=== PATIENT | male | born 1955 | race Two or more races ===

== ENCOUNTER 2017-01-30 23:30 | Inpatient (IN) | payer MEDICARE, MEDICAID ==
[~2017-01-30] VITALS: Ht 175.3 cm; Wt 86.2 kg
[2017-01-30 23:47] VITALS: BP 130/71
[2017-01-31] VITALS (10 sets, daily range): BP systolic 130–144; BP diastolic 69–95
--- NOTE | 2017-01-31 00:14 | Emergency Room Report ---
History of Present Illness General Chief Complaint: Altered Level of Consciousness Source: EMS Present Illness HPI Patient is a 62-year-old male presented after increased altered consciousness. Patient had unclear onset of symptoms however, the patient was noted be somewhat altered approximately 7:00 in the morning by [facility] staff. The patient previous history of CVA with residual left-sided weakness. Patient was noted to have increased confusion. The patient is a stay at assisted living. Patient had been taking multiple medications. Allergies: Coded Allergies: No Known Allergies (Unverified , 01/30/17) Patient History Past Medical History: see triage record, CVA/TIA Reviewed Nursing Documentation: PMH: Agreed, PSxH: Agreed Nursing Documentation-PMH Hx Hypertension: Yes Hx Cerebrovascular Accident: Yes - LEFT SIDE HEMIPHARESIS, STROKE Review of Systems All Other Systems: limited - by mental status Physical Exam Vital Signs Date Time Temp Pulse Resp B/P Pulse Ox O2 Delivery O2 Flow Rate FiO2 01/30/17 23:30 98.8 56 18 142/86 98 Room Air Sp02 EP Interpretation: reviewed, normal General Appearance: normal inspection, well appearing, no apparent distress Head: atraumatic ENT: normal ENT inspection, hearing grossly normal, normal voice Neck: normal inspection, full range of motion, supple, no bony tend Respiratory: normal inspection, lungs clear, normal breath sounds, no respiratory distress, no retraction, no wheezing Cardiovascular #1: regular rate, rhythm, no edema Gastrointestinal: normal inspection, normal bowel sounds, non tender, soft, no guarding, no hernia Genitourinary: no CVA tenderness Musculoskeletal: back normal, other - left upper extremity weakness Neurologic: normal inspection, alert, responsive, speech normal, motor weakness - left upper extremity, other - left sided hemineglect Psychiatric: normal inspection, judgement/insight normal, mood/affect normal Skin: normal inspection, normal color, no rash Medical Decision Making Diagnostic Impression: Primary Impression: Altered level of consciousness Additional Impression: CVA (cerebral vascular accident) ER Course Patient presented for altered mental status. Differential diagnosis included but was not limited to ischemic stroke, subarachnoid hemorrhage, hypoglycemia, spinal cord injury, neurodegenerative disorder, urinary tract infection, hypoxemia.A CT of the head radiology showed a probable thrombosis in the MCA distribution. Patient onset was consistent with a CVA this morning. The patient appears to be outside of the window for thrombolytics. Patient was given aspirin. The patient be admitted for further evaluation monitoring. Dr. Rodolfo Box was contacted for inpatient management Labs Test 01/31/17 00:49 White Blood Count 8.4 K/UL (4.8-10.8) Red Blood Count 5.80 M/UL (4.70-6.10) Hemoglobin 16.7 G/DL (14.2-18.0) Hematocrit 50.9 % (42.0-52.0) Mean Corpuscular Volume 88 FL (80-99) Mean Corpuscular Hemoglobin 28.8 PG (27.0-31.0) Mean Corpuscular Hemoglobin Concent 32.8 G/DL (32.0-36.0) Red Cell Distribution Width 14.1 % (11.6-14.8) Platelet Count 142 K/UL (150-450) Mean Platelet Volume 7.1 FL (6.5-10.1) Neutrophils (%) (Auto) 68.2 % (45.0-75.0) Lymphocytes (%) (Auto) 21.0 % (20.0-45.0) Monocytes (%) (Auto) 9.4 % (1.0-10.0) Eosinophils (%) (Auto) 0.8 % (0.0-3.0) Basophils (%) (Auto) 0.8 % (0.0-2.0) EKG Diagnostic Results Rate: bradycardiac Rhythm: NSR - 53 ST Segments: no acute changes Rhythm Strip Diag. Results EP Interpretation: yes Rhythm: NSR - 53, no PVC's, no ectopy Chest X-Ray Diagnostic Results EP Interpretation: Yes Findings: no consolidation, no effusion, no pneumothorax, no acute cardiopulmonary disease Number of Views: 1 Last Vital Signs Date Time Temp Pulse Resp B/P Pulse Ox O2 Delivery O2 Flow Rate FiO2 01/30/17 23:30 98.8 56 18 142/86 98 Room Air Status: unchanged Disposition: ADMITTED INPATIENT Condition: Stoney Mojica Jan 31, 2017 00:14
[2017-01-31 01:04] LABS: BASOPHILS % (AUTO) 0.8 % (0.0-2.0); EOSINOPHILS % (AUTO) 0.8 % (0.0-3.0); MEAN CORPUSCULAR HEMOGLOBIN 28.8 PG (27.0-31.0); MEAN CORPUSCULAR HGB CONC 32.8 G/DL (32.0-36.0); MEAN CORPUSCULAR VOLUME 88 FL (80-99); MEAN PLATELET VOLUME 7.1 FL (6.5-10.1); MONOCYTES % (AUTO) 9.4 % (1.0-10.0); NEUTROPHILS % (AUTO) 68.2 % (45.0-75.0); PLATELET COUNT 142 K/UL (150-450); RED CELL DISTRIBUTION WIDTH 14.1 % (11.6-14.8); WHITE BLOOD COUNT 8.4 K/UL (4.8-10.8)
[2017-01-31 01:14] LABS: INR 1.1 (0.9-1.1); PROTHROMBIN TIME 11.6 SEC (9.30-11.50)
[2017-01-31 01:18] LABS: ALANINE AMINOTRANSFERASE 14 U/L (3-41); ALBUMIN/GLOBULIN RATIO 1.4 (1.0-2.7); ANION GAP 12 (5-15); ASPARTATE AMINO TRANSFERASE 15 U/L (5-40); CALCIUM 8.8 mg/dL (8.6-10.2); CARBON DIOXIDE 26 mEQ/L (20-30); CHLORIDE 103 mEQ/L (98-107); CREATININE 1.1 mg/dL (0.7-1.2); GLOMERULAR FILTRATION RATE > 60 mL/min (>60); HEMOLYSIS 26; POTASSIUM 3.8 mEQ/L (3.4-4.9); SODIUM 141 mEQ/L (135-145); TOTAL PROTEIN 6.6 g/dL (6.6-8.7)
[2017-01-31 01:20] LABS: TROPONIN I < 0.30 ng/mL (<=0.30)
[2017-01-31 01:28] LABS: CKMB 1.8 ng/mL (< 6.7)
[2017-01-31 02:06] LABS: APPEARANCE,URINE CLEAR; KETONES,URINE NEGATIVE (NEGATIVE); LEUKOCYTE ESTERASE ,URINE NEGATIVE (NEGATIVE); NITRITE,URINE NEGATIVE (NEGATIVE); PH,URINE 7 (4.5-8.0); PROTEIN,URINE NEGATIVE (NEGATIVE); UROBILINOGEN,URINE 1 MG/DL (0.0-1.0)
[2017-01-31] MEDS ORDERED: AMLODIPINE BESY10 MG ORAL (02:13)
[2017-01-31] MEDS ORDERED: LIPITOR20 MG ORAL (02:14)
[2017-01-31] MEDS ORDERED: COLACE100 MG ORAL (02:14)
[2017-01-31] MEDS ORDERED: DETROL LA2 MG ORAL (02:15)
[2017-01-31] MEDS ORDERED: LISINOPRIL20 MG ORAL (02:15)
[2017-01-31] MEDS ORDERED: ZANTAC150 MG ORAL (02:16)
[2017-01-31] MEDS ORDERED: HYDRALAZINE HCL50 MG ORAL (02:17)
[2017-01-31] MEDS ORDERED: IBUPROFEN600 MG ORAL (02:17)
[2017-01-31] MEDS ORDERED: TYLENOL EXTRA500 MG ORAL (02:18)
[2017-01-31] MEDS ORDERED: ANTI-DIARRHEA2 MG PO (02:18)
[2017-01-31] MEDS ORDERED: MILK OF MA400 MG/51 ORAL (02:19)
[2017-01-31] MEDS ORDERED: NS w/KCl 20mEq 1,000 ML IV SCH (08:00)
--- NOTE | 2017-01-31 09:09 | Diagnostic Imaging Report ---
Indications: Altered mental status Technique: Continuous helical CT imaging of the brain was performed with automatic exposure control on a Siemens sensation [address] scanner. Axial and coronal images were reconstructed at 5 mm slice thickness and interval. CTDI volume(s): 70 mGy Total DLP: 1456 mGy-cm Findings: Comparison: None. Large wedge-shaped, peripherally based area of abnormal low attenuation involves contiguous portions of right temporal, frontal, and parietal lobes, insula and basal ganglia region. Both bagley and white matter are involved. Bagley-white differentiation decreased. Regional sulci effaced. Asymmetrically increased attenuation in M1 and M2 segments of right middle cerebral artery. Multiple small circumscribed foci of low attenuation/parenchymal loss in yamile, bilateral basal ganglia/radiata regions. Confluent low attenuation bilateral periventricular and deep white matter. Ventricles, cisterns, sulci are diffusely prominent.. No evidence of mass or hemorrhage, other attenuation abnormality, midline shift, hydrocephalus or increased intracranial pressure. Bone window images are unremarkable. Visualized paranasal sinuses and mastoid air cells are clear. IMPRESSION: Large acute infarct right middle cerebral artery territory with evidence of acute thrombosis of the latter. Mild local mass effect but no midline shift. Pontine and bilateral cerebral infarcts as described Extensive chronic microvascular ischemic changes bilateral cerebral white matter Atrophy. This correlates with [facility] preliminary report. The CT scanner at [facility] is accredited by the [employer] and the scans are performed using protocols designed to limit radiation exposure to as low as reasonably achievable to attain images of sufficient resolution adequate for diagnostic evaluation.
--- NOTE | 2017-01-31 09:13 | Diagnostic Imaging Report ---
Indications: Shortness of breath Technique: Portable AP chest Findings: Comparison: None Left hemithoracic base degraded by overlying extremity. Left lung pleura are otherwise clear. Elevation apparent hemidiaphragm with overlying right lung base linear densities. No obvious right pleural abnormalities. Cardiac silhouette appears mildly enlarged. Pulmonary vasculature within normal limits. Aortic arch mildly calcified. No abnormal mediastinal widening. IMPRESSION: Right lung volume loss with elevation apparent right hemidiaphragm, overlying subsegmental atelectasis versus scarring No other evidence of acute cardiopulmonary disease, limited as described Apparent cardiomegaly, may be to a degree artifactual enhanced by suboptimal inspiration
[2017-01-31] MEDS: Lisinopril 20mg tab ORAL SCH ×2 (09:58→18:27)
[2017-01-31 10:05] LABS: BASOPHILS % (AUTO) 0.6 % (0.0-2.0); EOSINOPHILS % (AUTO) 0.6 % (0.0-3.0); LYMPHOCYTES % (AUTO) 20.7 % (20.0-45.0); MEAN CORPUSCULAR HEMOGLOBIN 28.4 PG (27.0-31.0); MEAN CORPUSCULAR VOLUME 89 FL (80-99); MEAN PLATELET VOLUME 7.2 FL (6.5-10.1); MONOCYTES % (AUTO) 9.4 % (1.0-10.0); NEUTROPHILS % (AUTO) 68.6 % (45.0-75.0); PLATELET COUNT 161 K/UL (150-450); RED BLOOD COUNT 6.12 M/UL (4.70-6.10); RED CELL DISTRIBUTION WIDTH 14.2 % (11.6-14.8); WHITE BLOOD COUNT 8.5 K/UL (4.8-10.8)
[2017-01-31 10:27] LABS: AMMONIA 23 umol/L (16-60)
[2017-01-31 10:34] LABS: ALANINE AMINOTRANSFERASE 16 U/L (3-41); ALBUMIN/GLOBULIN RATIO 1.5 (1.0-2.7); ANION GAP 13 (5-15); ASPARTATE AMINO TRANSFERASE 15 U/L (5-40); CALCIUM 9.2 mg/dL (8.6-10.2); CARBON DIOXIDE 27 mEQ/L (20-30); CHLORIDE 102 mEQ/L (98-107); CHOLESTEROL 167 mg/dL (< 200); CHOLESTEROL/HDL RATIO 3.8 (3.3-4.4); CREATININE 1.1 mg/dL (0.7-1.2); GLOMERULAR FILTRATION RATE > 60 mL/min (>60); HEMOLYSIS 3; LDL CHOLESTEROL (CALC.) 101 mg/dL (60-99); POTASSIUM 3.9 mEQ/L (3.4-4.9); SODIUM 142 mEQ/L (135-145)
--- NOTE | 2017-01-31 21:28 | Consultation ---
Consult Note Consult Note NEUROLOGY CONSULTATION: Full note dictated #[id number] 62 y/o, RH, BM with PH of HTN and a stroke 3 years ago with left UE>LE paresis. On 01/30/17 was noted to have AMS and left visual problems and neglect. ON EXAM: Disorientation to date and place. Mild memory problems. Left VF cut with right gaze preference. Left VII central. Left UE plegia Left LE paresis. Left> right DTRs Extensor left plantar. CT of brain with acute right MCA infarct and old yamile and BG infarcts. IMPRESSION: Acute right MCA infarct and old yamile and BG infarcts. REC: Change antiplatelet to Plavix Keep BP <120/80 Keep LDL < 70 W/U for CVD with CVNIP and TTE with bubble. PT/OT/SLT Christel Hutton M.D., M.S.P.CHRISTEL GUTIERREZ Jan 31, 2017 21:28
--- NOTE | 2017-01-31 22:28 | History and Physical Report ---
DATE OF ADMISSION: 01/31/2017 CHIEF COMPLAINT: Altered mental status. HISTORY OF PRESENT ILLNESS: The patient is a 62-year-old male. He has a prior history of hypertensive heart disease and stroke with chronic left-sided weakness. He was brought in by family members because of altered mental status. According to the patient's family several days ago, his assisted-living notified him that he was poorly responsive. Family came and evaluated the patient. They noted that he seemed somewhat confused and "not at his baseline." They requested that he go to the emergency room, but the patient refused. The patient's condition continued and did not improve. After urging from family members, the patient eventually did agree to go the emergency room. On evaluation, there a CT scan showed a large acute infarct in the right middle cerebral artery. The patient is now admitted for further evaluation and care. PAST MEDICAL HISTORY: As above. PAST SURGICAL HISTORY: None. CURRENT MEDICATIONS: Reconciled and reviewed. ALLERGIES: None. FAMILY HISTORY: Significant for hypertension and diabetes, heart disease. SOCIAL HISTORY: Negative for tobacco, ethanol, or drugs. REVIEW OF SYSTEMS: The patient is unobtainable. PHYSICAL EXAMINATION: VITAL SIGNS: Temperature 98.9 degrees, blood pressure 132/70, pulse 58, respirations 20. GENERAL: The patient is a well-developed, in no apparent distress. He is arousable and does answer some simple questions. There is some questionable left-sided neglect. ASSESSMENT: 1. This is a pleasant male with a prior history of stroke with left-sided weakness admitted with altered mental status likely secondary to a second stroke causing altered mental status secondary to stroke. 2. Prior stroke. 3. History of hypertension. PLAN: Neuro consultation. Check an echo and a carotid duplex. PT and OT evaluation. Swallow evaluation will be obtained. Cardiology consultation also has been obtained. Kulwinder House M.D. DR: NENA JOB#: [id number] CC:
[2017-02-01] VITALS: BP 145/75
[2017-02-01 04:00] VITALS: BP 154/87
--- NOTE | 2017-02-01 06:58 | Consultation ---
DATE OF CONSULTATION: 01/31/2017 NEUROLOGY CONSULTATION REQUESTING PHYSICIAN: Rodolfo Box M.D. HISTORY: Mr. Barrett Alejandre is a 62-year-old, right-handed, black gentleman, who does have a past history of hypertension, dyslipidemia, and stroke approximately three years ago associated with left upper extremity greater than lower extremity paresis. Since then, he has lived in a [facility]. On 01/30/2017, he was noted to have alteration in his mental state, left visual problems, and left-sided neglect. The paramedics were called in, and he was brought into the [facility] Emergency Room. He was evaluated with a CT scan of the brain, which revealed an acute right middle cerebral artery territory infarct, and in addition, old infarcts in the yamile and basal ganglia. The patient has since been admitted for further evaluation and management. At this point in time, the patient continues to have significant left-sided neglect and is plegic in the upper extremity and paretic in the left lower extremity. He denies any other neurological symptoms. PAST MEDICAL HISTORY: Significant for hypertension, cerebrovascular disease with stroke three years ago associated with left upper extremity greater than lower extremity weakness. FAMILY HISTORY: Significant for high blood pressure in other family members. PERSONAL HISTORY: Home: He lives in an assisted living facility. 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 Habits: He used to smoke in the past, but stopped smoking 3 years ago when he had his first stroke. He consumes approximately 1 alcoholic drink in the week. He denies use of any illicit drugs. PRESENT MEDICATIONS: Include atorvastatin, ranitidine, lisinopril, and aspirin 325 mg. PHYSICAL EXAMINATION: GENERAL: He is a well-developed, well-nourished, pleasant black gentleman, lying in bed, in no acute distress, neglecting his left side with right gaze preference. VITAL SIGNS: Pulse 56 per minute, blood pressure 135/95 mmHg, respirations 20 per minute, and temperature 98.2 degrees Fahrenheit. HEAD: Normocephalic and atraumatic. EENT: Examination benign. NECK: No neck rigidity was observed. NEUROLOGICAL EXAMINATION: MENTAL STATUS EXAMINATION: He was awake and alert. He was oriented to self, hospital, and January 2017. He did not know the name of the hospital or the exact date. He was able to recall 3/3 words immediately and in 1 minute, but could only remember 2/3 words in 3 minutes. He was able to remember president Trump through Paul Kannan, but had problems remembering presidents prior to that. His mathematical skills were minimally impaired. His visuospatial function was relatively good. SPEECH: He had a mild dysarthria. LANGUAGE: He had a mild anomia for low-frequency words. CRANIAL NERVE EXAMINATION: II: He had a left visual field cut and a right gaze preference. III, IV & : The external ocular movements were restricted due to the significant right gaze preference. The pupils were 3 mm in diameter, equal, round, regular, and reactive sluggishly to light. V: He had normal facial sensations, and the temporales, masseters, and pterygoids functioned normally. VII: He had a left VII central facial paresis. VIII: He was able to hear well bilaterally and had no nystagmus. IX: The palate moved symmetrically on phonation. X: He had no hoarseness of voice. XI: The sternocleidomastoids and trapezii functioned normally. XII: The tongue was in the midline without any fasciculations or atrophy. MOTOR SYSTEM: The tone was spastic on the left side and normal on the right side. Examination of muscle mass revealed wasting of the left upper extremity. Examination of power revealed G 0/5 in the left upper extremity, G 4/5 in the left lower extremity except for G 3/5 in the left iliopsoas, G 5/5 on the right side except for G 4+/5 in the right iliopsoas. SENSORY EXAMINATION: He had intact sensations to pinprick and light touch on the right side. On the left side, he neglected stimulation. REFLEXES: 2++ on the left and 2+ on the right at the biceps, triceps, brachioradialis, and knees. 0 at both ankles. The plantar response was flexor on the right and extensor on the left. COORDINATION: He performed well on [id number] and bown-ud-[id number] testing on the right side, but could not perform on the left side. STANCE & GAIT: Could not be tested. DIAGNOSTIC IMPRESSION: 1. Mr. Barrett Alejandre is a 62-year-old, right-handed, black gentleman, who does have a past history of hypertension, cerebrovascular disease with stroke approximately 3 years ago associated with left-sided weakness, who on 01/30/2017 was noted to have an alteration in his mental state and in addition left visual problems and neglect of his left side. 2. On neurological examination, at this time, he is disoriented to the exact date and place, and has problems with recent and remote memory. Has a mild dysarthria, mild anomia, left visual field cut with right gaze preference , left VII central facial paresis, left upper extremity plegia, left lower extremity paresis, mild proximal right lower extremity paresis, brisker reflexes on the left side compared to the right side, an extensor plantar response on the left side with an inability to stand and walk. 3. The CT scan of the brain without contrast reveals an acute right middle cerebral artery territory infarct and in addition, old pontine and basal ganglion infarcts. 4. Laboratory data obtained thus far revealed that his hemoglobin is elevated to 17.3. His chemistry panel is relatively benign, and his lipid panel reveals a total cholesterol of 167 with an LDL of 101 and HDL of 44. His vitamin B12 level is normal at 481 and his TSH is normal at 2.3. His urinalysis was also benign. 5. The patient's history and neurological examination are most compatible with an acute right middle cerebral artery territory infarct and in addition old infarcts in the yamile and basal ganglia. RECOMMENDATIONS: 1. Agree with management thus far. 2. The patient's blood pressure should be kept in the equal to or less than 120/80 range. 3. The patient's LDL goal should be less than 70. 4. It may be worth changing the patient's antiplatelet agent from aspirin to Plavix to give him added stroke prevention benefits. 5. A cerebrovascular noninvasive profile should be performed to evaluate the patient for hemodynamically significant carotid disease. 6. A transthoracic echocardiogram with a bubble study should be performed in light of the multiple infarcts that the patient has had. 7. Physical occupational and speech and language therapy should be started to rehabilitate the patient. Thank you for entrusting me with the care of Mr. Alejandre. I shall follow him with you. Jacek Hutton M.D., M.S.P.H. DR: CM/at :30 JOB#: [id number] EMILIANA
--- NOTE | 2017-02-01 08:41 | General Progress Note ---
Assessment/Plan Problem List: (1) CVA (cerebral vascular accident) ICD Codes: I63.9 - Cerebral infarction, unspecified SNOMED: 566130430 (2) Altered level of consciousness ICD Codes: R40.4 - Transient alteration of awareness SNOMED: 2167802 Status: stable, progressing Assessment/Plan check echo and carotid antiplt rx pt/ot/st bp rx per cards Subjective ROS Limited/Unobtainable: No Constitutional: Reports: malaise, weakness HEENT: Reports: no symptoms Cardiovascular: Reports: no symptoms Respiratory: Reports: no symptoms Gastrointestinal/Abdominal: Reports: no symptoms Genitourinary: Reports: no symptoms Neurologic/Psychiatric: Reports: emotional problems, pre-existing deficit, seizure Endocrine: Reports: no symptoms Hematologic/Lymphatic: Reports: no symptoms Allergies: Coded Allergies: No Known Allergies (Unverified , 01/30/17) All Systems: reviewed and negative except above Subjective still with left sided neglect. neuro noted. Objective Last 24 Hour Vital Signs Date Time Temp Pulse Resp B/P Pulse Ox O2 Delivery O2 Flow Rate FiO2 02/01/17 04:00 97.7 61 20 154/87 99 Room Air 02/01/17 04:00 58 02/01/17 00:00 65 02/01/17 00:00 98.4 65 21 145/75 97 Room Air 01/31/17 20:00 56 01/31/17 20:00 98.2 56 21 135/95 96 Room Air 01/31/17 18:27 132/70 01/31/17 16:17 98.9 58 20 132/70 100 Room Air 01/31/17 16:00 57 01/31/17 16:00 98.9 58 20 132/70 100 Room Air 01/31/17 12:07 97.3 58 20 132/80 98 Room Air 01/31/17 12:00 56 01/31/17 09:58 141/83 Intake and Output 01/31/17 02/01/17 19:00 07:00 Intake Total 960 ml 1000 ml Output Total 2450 ml 700 ml Balance -1490 ml 300 ml Intake Oral 160 ml IV Total 800 ml 1000 ml Output Urine Total 2450 ml 700 ml Laboratory Tests 01/31/17 09:40: White Blood Count 8.5, Red Blood Count 6.12H, Hemoglobin 17.3, Hematocrit 54.3H , Mean Corpuscular Volume 89, Mean Corpuscular Hemoglobin 28.4, Mean Corpuscular Hemoglobin Concent 32.0, Red Cell Distribution Width 14.2, Platelet Count 161, Mean Platelet Volume 7.2, Neutrophils (%) (Auto) 68.6, Lymphocytes (% ) (Auto) 20.7, Monocytes (%) (Auto) 9.4, Eosinophils (%) (Auto) 0.6, Basophils ( %) (Auto) 0.6, Sodium Level 142, Potassium Level 3.9, Chloride Level 102, Carbon Dioxide Level 27, Anion Gap 13, Blood Urea Nitrogen 12, Creatinine 1.1, Estimat Glomerular Filtration Rate > 60, Glucose Level 87, Calcium Level 9.2, Total Bilirubin 0.7, Aspartate Amino Transf (AST/SGOT) 15, Alanine Aminotransferase (ALT/SGPT) 16, Alkaline Phosphatase 77, Ammonia 23, Total Protein 7.0, Albumin 4.2, Globulin 2.8, Albumin/Globulin Ratio 1.5, Triglycerides Level 111, Cholesterol Level 167, LDL Cholesterol 101H, HDL Cholesterol 44, Cholesterol/HDL Ratio 3.8, Vitamin B12 Level 481, Folate [ Pending], Thyroid Stimulating Hormone (TSH) 2.300, Rapid Plasma Reagin [Pending] Height (Feet): 5 Height (Inches): 9.00 Weight (Pounds): 190 General Appearance: WD/WN, alert, confused Neck: supple Cardiovascular: regular rhythm Respiratory/Chest: lungs clear Abdomen: normal bowel sounds, non tender, soft, no organomegaly Edema: no edema noted Arm (L), no edema noted Arm (R), no edema noted Leg (L), no edema noted Leg (R), no edema noted Pedal (L), no edema noted Pedal (R), no edema noted Generalized Neurologic: motor weakness Skin: normal pigmentation PARISH SEBASTIAN Feb 01, 2017 08:41
[2017-02-01 08:43] VITALS: BP 149/93
[2017-02-01] MEDS: Lisinopril 20mg tab ORAL SCH ×2 (09:35→17:26)
[2017-02-01 12:00] VITALS: BP 147/86
[2017-02-01 15:21] VITALS: BP 129/69
[2017-02-01 18:43] LABS: APPEARANCE,URINE SLIGHTLY CLOUDY; KETONES,URINE NEGATIVE (NEGATIVE); LEUKOCYTE ESTERASE ,URINE 2+ (NEGATIVE); NITRITE,URINE NEGATIVE (NEGATIVE); PH,URINE 5 (4.5-8.0); PROTEIN,URINE 3+ (NEGATIVE); UROBILINOGEN,URINE NORMAL MG/DL (0.0-1.0)
[2017-02-01 18:48] LABS: BACTERIA,URINE MODERATE /HPF
--- NOTE | 2017-02-01 19:12 | Cardiology Report ---
APPROVED REPORT EXAM: Two-dimensional and M-mode echocardiogram with Doppler and color Doppler. INDICATION CVA M-Mode DIMENSIONS IVSd1.0 (0.7-1.1cm)Left Atrium (MM)3.1 (1.6-4.0cm) LVDd5.8 (3.5-5.6cm)Aortic Root2.7 (2.0-3.7cm) PWd0.9 (0.7-1.1cm)Aortic Cusp Exc.1.9 (1.5-2.0cm) LVDs2.9 (2.5-4.0cm) PWs1.0 cm Technically difficult study due to poor acoustic windows. Patient moving. Normal left ventricular chamber size, systolic function and wall motion. Left ventricular ejection fraction estimated to be 70-75%. No evidence of left ventricular hypertrophy. No evidence of pericardial fat or effusion. All other cardiac chamber sizes are within normal limits. Focal aortic valve sclerosis with adequate cusp excursion Thickened mitral valve leaflets with normal excursion. Mitral annulus and aortic root calcification. Pulmonic valve not well visualized. Normal tricuspid valve structure. IVC is not obtainable. A color flow and spectral Doppler study was performed and revealed: No aortic regurgitation. No mitral regurgitation. Left ventricular diastolic dysfunction grade 1. No tricuspid regurgitation. Pulmonic regurgitation present.
--- NOTE | 2017-02-01 19:27 | Neurology Progress Note ---
Interim History Interim History Interim History Mr. Alejandre feels better. He is a little more aware of his left sided deficits. He continues to have a right gaze preference. He denies any new neurologic symptoms. Review of Systems Neuro Review of Systems Benign. Objective Physical Exam Last Vital Signs Date Time Temp Pulse Resp B/P Pulse Ox O2 Delivery O2 Flow Rate FiO2 02/01/17 17:26 129/69 02/01/17 16:09 58 02/01/17 15:21 98.5 18 97 Room Air Laboratory Tests Test 02/01/17 18:00 Urine Color Pale yellow Urine Appearance Slightly cloudy Urine pH 5 (4.5-8.0) Urine Specific [place] 1.015 (1.005-1.035) Urine Protein 3+ (NEGATIVE) H Urine Glucose (UA) Negative (NEGATIVE) Urine Ketones Negative (NEGATIVE) Urine Occult Blood 5+ (NEGATIVE) H Urine Nitrite Negative (NEGATIVE) Urine Bilirubin Negative (NEGATIVE) Urine Urobilinogen Normal MG/DL (0.0-1.0) Urine Leukocyte Esterase 2+ (NEGATIVE) H Urine RBC 10-15 /HPF (0 - 0) H Urine WBC 5-10 /HPF (0 - 0) H Urine Squamous Epithelial Cells None /LPF (NONE/OCC) Urine Bacteria Moderate /HPF (NONE) H Neurologic Exam Objective PHYSICAL EXAMINATION: GENERAL: He is a well-developed, well-nourished, pleasant black gentleman, lying in bed, in no acute distress, neglecting his left side with right gaze preference. HEAD: Normocephalic and atraumatic. EENT: Examination benign. NECK: No neck rigidity was observed. NEUROLOGICAL EXAMINATION: MENTAL STATUS EXAMINATION: He was awake and alert. He was oriented to self, hospital, and January 2017. He did not know the name of the hospital or the exact date. He was able to recall 3/3 words immediately and in 1 minute, but could only remember 2/3 words in 3 minutes. He was able to remember president Trchris through Paul Kannan, but had problems remembering presidents prior to that. His mathematical skills were minimally impaired. His visuospatial function was relatively good. SPEECH: He had a mild dysarthria. LANGUAGE: He had a mild anomia for low-frequency words. CRANIAL NERVE EXAMINATION: II: He had a left visual field cut and a right gaze preference. III, IV & : The external ocular movements were restricted due to the significant right gaze preference. The pupils were 3 mm in diameter, equal, round, regular, and reactive sluggishly to light. V: He had normal facial sensations, and the temporales, masseters, and pterygoids functioned normally. VII: He had a left VII central facial paresis. VIII: He was able to hear well bilaterally and had no nystagmus. IX: The palate moved symmetrically on phonation. X: He had no hoarseness of voice. XI: The sternocleidomastoids and trapezii functioned normally. XII: The tongue was in the midline without any fasciculations or atrophy. MOTOR SYSTEM: The tone was spastic on the left side and normal on the right side. Examination of muscle mass revealed wasting of the left upper extremity. Examination of power revealed G 0/5 in the left upper extremity, G 4/5 in the left lower extremity except for G 3/5 in the left iliopsoas, G 5/5 on the right side except for G 4+/5 in the right iliopsoas. SENSORY EXAMINATION: He had intact sensations to pinprick and light touch on the right side. On the left side, he neglected stimulation. REFLEXES: 2++ on the left and 2+ on the right at the biceps, triceps, brachioradialis, and knees. 0 at both ankles. The plantar response was flexor on the right and extensor on the left. COORDINATION: He performed well on [id number] and [id number]-[id number]-qdqr testing on the right side, but could not perform on the left side. STANCE & GAIT: Could not be tested. Impression/Recommendations Diagnostic Impression 1. Mr. Barrett Alejandre is a 62-year-old, right-handed, black gentleman, who does have a past history of hypertension, cerebrovascular disease with stroke approximately 3 years ago associated with left-sided weakness, who on 2016 was noted to have an alteration in his mental state and in addition left visual problems and neglect of his left side. 2. He feels better today. He however has significant weakness and neglect of his left side. 3. On neurological examination, at this time, he is disoriented to the exact date and place, and has problems with recent and remote memory. Has a mild dysarthria, mild anomia, left visual field cut with right gaze preference, left VII central facial paresis, left upper extremity plegia, left lower extremity paresis, mild proximal right lower extremity paresis, brisker reflexes on the left side compared to the right side, an extensor plantar response on the left side with an inability to stand and walk. 4. The CT scan of the brain without contrast reveals an acute right middle cerebral artery territory infarct and in addition, old pontine and basal ganglion infarcts. 5. Laboratory data obtained thus far revealed that his hemoglobin is elevated to 17.3. His chemistry panel is relatively benign, and his lipid panel reveals a total cholesterol of 167 with an LDL of 101 and HDL of 44. His vitamin B12 level is normal at 481 and his TSH is normal at 2.3. His urinalysis was also benign. 6. The patient's history and neurological examination are most compatible with an acute right middle cerebral artery territory infarct and in addition old infarcts in the yamile and basal ganglia. Recommendations 1. Continue present management. 2. The patient's blood pressure should be kept in the equal to or less than 120/ 80 range. 3. The patient's LDL goal should be less than 70. 4. A cerebrovascular noninvasive profile should be performed to evaluate the patient for hemodynamically significant carotid disease. 5. A transthoracic echocardiogram with a bubble study should be performed in light of the multiple infarcts that the patient has had. 6. Physical occupational and speech and language therapy should be started to rehabilitate the patient. Christel Hutton M.D., M.S.P.CHRISTEL GUTIERREZ Feb 01, 2017 19:27
[2017-02-01 20:00] VITALS: BP 134/85
[2017-02-02] VITALS: BP 133/79
[2017-02-02] MEDS: cefTRIAXone 1 GM in D5W 55 ML IVPB SCH (01:15)
--- NOTE | 2017-02-02 03:08 | Progress Note ---
DATE: 02/01/2017 SUBJECTIVE: The patient still with left-sided neglect. He remains with left-sided paresis at baseline. OBJECTIVE: VITAL SIGNS: Blood pressure 154/87, pulse 61, and respiratory rate 20. He is afebrile. Monitored rhythm sinus. Echocardiogram with mild concentric hypertrophy and diastolic dysfunction. Normal ejection fraction. Bubble study pending. Carotid duplex completed, results pending. NEUROLOGIC: As noted left-sided neglect, left-sided paresis, mild dysarthria. NECK: Supple. No bruits. LUNGS: Clear. CARDIAC: Regular rhythm and rate. S1 and S2 with a fourth heart sound. ABDOMEN: Soft. EXTREMITIES: Without edema. LABORATORY DATA: Labs noted. T-max 100.6. Urinalysis with 15 to 20 white cells. Chest x-ray with right-sided atelectasis. IMPRESSION: 1. Fever, possible urinary tract infection, possible aspiration pneumonia. 2. Acute cerebrovascular accident. 3. Hypertensive heart disease. PLAN: Antiplatelet therapy with Plavix. Await bubble study. Review carotid duplex study. Hydrate. Panculture. Empiric antibiotics. Repeat chest x-ray. Await cultures of the urine. Repeat CBC. Swallow evaluation pending. Rodolfo Box M.D. DR: DEANGELO JOB#: [id number] CC:
[2017-02-02] MEDS: DuoNeb 0.5-3(2.5)mg/3ml neb HHN SCH ×6 (03:12→23:50)
--- NOTE | 2017-02-02 03:18 | Progress Note ---
CARDIOLOGY PROGRESS NOTE Late entry for 01/31/2017. SUBJECTIVE: The patient was seen and evaluated with and son at bedside. Historical data was updated. Per family, the patient is more alert today, however is not at his baseline due to left-sided neglect and less verbal communication skills. OBJECTIVE: VITAL SIGNS: Blood pressure 132/70, pulse 58, respirations 20, and afebrile. Monitored his sinus rhythm. NECK: Supple. LUNGS: Clear. CARDIAC: Regular rhythm and rate. Normal S1 and S2 with a fourth heart sound. ABDOMEN: Soft and nontender. EXTREMITIES: No edema. NEUROLOGIC: Left-sided paresis with contracture of the upper extremity. Left-sided neglect. Dysarthria. LABORATORY DATA: Laboratories reviewed. IMPRESSION: 1. Acute cerebrovascular accident. 2. Prior cerebrovascular accident. 3. Hypertension with hypertensive heart disease. PLAN: 1. Followup carotid duplex and echocardiogram. 2. Consider advancing antiplatelet therapy Plavix. 3. Swallow evaluation. 4. Titrate antihypertensive. 5. Maintain adequate hydration . 6. Family members appraised of care plan. Rodolfo Box M.D. DR: WING JOB#: [id number] CC:
[2017-02-02 04:00] VITALS: BP 138/73
[2017-02-02 06:32] LABS: ALANINE AMINOTRANSFERASE 11 U/L (3-41); ALBUMIN/GLOBULIN RATIO 1.3 (1.0-2.7); ANION GAP 16 (5-15); ASPARTATE AMINO TRANSFERASE 14 U/L (5-40); CALCIUM 8.4 mg/dL (8.6-10.2); CARBON DIOXIDE 22 mEQ/L (20-30); CHLORIDE 101 mEQ/L (98-107); GLOMERULAR FILTRATION RATE > 60 mL/min (>60); HEMOLYSIS 19; POTASSIUM 3.6 mEQ/L (3.4-4.9); SODIUM 139 mEQ/L (135-145); TOTAL PROTEIN 6.1 g/dL (6.6-8.7)
--- NOTE | 2017-02-02 06:48 | Consultation ---
DATE OF CONSULTATION: The patient was seen in the emergency room. REASON FOR CONSULT: Acute cerebrovascular accident in the setting of hypertensive heart disease. HISTORY OF PRESENT ILLNESS: This is a 62-year-old male who resides in an assisted living facility. He suffered a stroke with left-sided paresis approximately 3 years ago. This morning, his daughter noted him to be increasingly withdrawn and altered on the phone, family members came to visit and found him to be much more withdrawn and less interactive than usual. The patient was sent to the emergency room for evaluation and an abnormal CAT scan of the brain was obtained. PAST MEDICAL HISTORY: Cerebrovascular disease with left hemiparesis and hypertension with hypertensive heart disease. ALLERGIES: None. FAMILY HISTORY: Noncontributory. SOCIAL HISTORY: Negative for smoking, alcohol, and substance abuse. MEDICATIONS: Prior to admission, reviewed and reconciled. REVIEW OF SYSTEMS: No fevers. No cough. No leg swelling. No chest pain. No history of irregular heartbeat. No history of diabetes or thyroid disorder. No history of seizures. No change in bowel habits. No history of prostate cancer. No history of kidney disease. PHYSICAL EXAMINATION: VITAL SIGNS: Blood pressure 142/86, pulse 56, respiratory rate 18, and afebrile. Monitored rhythm, sinus. HEENT: Conjunctivae are pink. Left-sided neglect with right-sided deviation of the eyes. Nasal passage is clear. Oropharynx clear. Positive gag reflex. Tongue midline. NECK: Supple. Jugular venous pressure normal. Carotid upstrokes without delay. LUNGS: Clear. CARDIAC: Regular rhythm and rate. Normal S1 and S2 with a fourth heart sound. ABDOMEN: Soft and nontender. No guarding or rebound. EXTREMITIES: Good pulses. No edema. NEUROLOGIC: Left hemiparesis. Speech is impaired with short responses and mild cognitive impairment. LABORATORY DATA: EKG, sinus bradycardia at [address] changes. White count 8.4 and hemoglobin 16.7. Chest x-ray, right atelectasis and possible elevated hemidiaphragm. CAT scan of the brain with acute right MCA stroke. Laboratories reviewed. IMPRESSION: 1. Acute cerebrovascular accident. 2. Sinus bradycardia. 3. Hypertensive heart disease. 4. Cerebrovascular disease with left hemiparesis due to prior stroke. 5. Mild volume depletion and dehydration. PLAN: Cardiac monitoring. IV fluid hydration. Anti-platelet therapy. Anti-lipid therapy. Check lipid panel. Check echocardiogram. Check carotid duplex. Cautious titration of antihypertensives. Avoid significant drop in blood pressure parameters. DVT prophylaxis. Metabolic profile including B12, folate, and thyroid function. Rodolfo Box M.D. DR: DEANGELO JOB#: [id number] CC:
[2017-02-02 06:59] LABS: BASOPHILS % (AUTO) 0.9 % (0.0-2.0); EOSINOPHILS % (AUTO) 1.9 % (0.0-3.0); LYMPHOCYTES % (AUTO) 26.3 % (20.0-45.0); MEAN CORPUSCULAR HEMOGLOBIN 28.9 PG (27.0-31.0); MEAN CORPUSCULAR HGB CONC 33.8 G/DL (32.0-36.0); MEAN CORPUSCULAR VOLUME 86 FL (80-99); MEAN PLATELET VOLUME 8.1 FL (6.5-10.1); NEUTROPHILS % (AUTO) 61.8 % (45.0-75.0); PLATELET COUNT 126 K/UL (150-450); RED CELL DISTRIBUTION WIDTH 13.4 % (11.6-14.8); WHITE BLOOD COUNT 7.6 K/UL (4.8-10.8)
[2017-02-02 07:36] VITALS: BP 141/85
[2017-02-02] MEDS: Lisinopril 20mg tab ORAL SCH ×2 (08:30→17:28)
[2017-02-02] MEDS ORDERED: Tubing IV Secondary IV ONE (08:48)
[2017-02-02 11:25] VITALS: BP 133/59
--- NOTE | 2017-02-02 11:28 | Diagnostic Imaging Report ---
Indication: Chest pain Technique: One view of the chest Comparison: none Findings: Lungs and pleural spaces are clear. Heart size is borderline enlarged. No significant interim change. Better inspiration currently Impression: No acute process Borderline cardiomegaly
--- NOTE | 2017-02-02 12:59 | General Progress Note ---
Assessment/Plan Problem List: (1) CVA (cerebral vascular accident) ICD Codes: I63.9 - Cerebral infarction, unspecified SNOMED: 399104054 (2) Altered level of consciousness ICD Codes: R40.4 - Transient alteration of awareness SNOMED: 9597625 Status: stable Assessment/Plan carotids ok video swallow per speech bubble study antiplt rx pt/ot/st bp rx per cards Subjective ROS Limited/Unobtainable: No Constitutional: Reports: malaise, weakness HEENT: Reports: no symptoms Cardiovascular: Reports: no symptoms Respiratory: Reports: no symptoms Gastrointestinal/Abdominal: Reports: no symptoms Genitourinary: Reports: no symptoms Neurologic/Psychiatric: Reports: pre-existing deficit, seizure Endocrine: Reports: no symptoms Hematologic/Lymphatic: Reports: no symptoms Allergies: Coded Allergies: No Known Allergies (Unverified , 01/30/17) All Systems: reviewed and negative except above Subjective still with left sided neglect. neuro noted. video swallow recommended by speech. Objective Last 24 Hour Vital Signs Date Time Temp Pulse Resp B/P Pulse Ox O2 Delivery O2 Flow Rate FiO2 02/02/17 11:29 21 02/02/17 11:29 55 16 97 Room Air 21 02/02/17 11:29 56 16 98 21 02/02/17 11:25 97.2 53 20 133/59 100 Room Air 02/02/17 08:30 141/85 02/02/17 08:00 51 02/02/17 07:36 98.2 48 20 141/85 98 Room Air 02/02/17 07:29 21 02/02/17 07:29 59 16 98 21 02/02/17 07:29 56 16 97 21 02/02/17 04:00 97.9 57 16 138/73 97 Room Air 02/02/17 04:00 50 02/02/17 03:36 21 02/02/17 03:35 49 16 Room Air 21 02/02/17 03:25 49 16 97 21 02/02/17 03:12 49 16 96 21 02/02/17 02:15 97.9 02/02/17 00:01 52 02/02/17 00:00 100.6 53 18 133/79 98 Room Air 02/01/17 20:00 57 02/01/17 20:00 98.6 60 18 134/85 98 Room Air 02/01/17 17:26 129/69 02/01/17 16:09 58 02/01/17 15:21 98.5 64 18 129/69 97 Room Air Intake and Output 02/01/17 02/02/17 19:00 07:00 Intake Total 560 ml 1105 ml Output Total 1380 ml 800 ml Balance -820 ml 305 ml Intake Oral 360 ml 30 ml IV Total 200 ml 1075 ml Output Urine Total 1380 ml 800 ml Laboratory Tests 02/01/17 18:00: Urine Color Pale yellow, Urine Appearance Slightly cloudy, Urine pH 5, Urine Specific [place] 1.015, Urine Protein 3+H, Urine Glucose (UA) Negative, Urine Ketones Negative, Urine Occult Blood 5+H, Urine Nitrite Negative, Urine Bilirubin Negative, Urine Urobilinogen Normal, Urine Leukocyte Esterase 2+H, Urine RBC 10-15H, Urine WBC 5-10H, Urine Squamous Epithelial Cells None, Urine Bacteria ModerateH 02/02/17 04:10: White Blood Count 7.6, Red Blood Count 5.60, Hemoglobin 16.2, Hematocrit 47.9, Mean Corpuscular Volume 86, Mean Corpuscular Hemoglobin 28.9, Mean Corpuscular Hemoglobin Concent 33.8, Red Cell Distribution Width 13.4, Platelet Count 126L, Mean Platelet Volume 8.1, Neutrophils (%) (Auto) 61.8, Lymphocytes (%) (Auto) 26.3, Monocytes (%) (Auto) 9.0, Eosinophils (%) (Auto) 1.9, Basophils (%) (Auto ) 0.9, Sodium Level 139, Potassium Level 3.6, Chloride Level 101, Carbon Dioxide Level 22, Anion Gap 16H, Blood Urea Nitrogen 9, Creatinine 1.0, Estimat Glomerular Filtration Rate > 60, Glucose Level 84, Calcium Level 8.4L, Total Bilirubin 0.6, Aspartate Amino Transf (AST/SGOT) 14, Alanine Aminotransferase ( ALT/SGPT) 11, Alkaline Phosphatase 66, Total Protein 6.1L, Albumin 3.5, Globulin 2.6, Albumin/Globulin Ratio 1.3 Height (Feet): 5 Height (Inches): 9.00 Weight (Pounds): 190 General Appearance: WD/WN, alert Neck: supple Cardiovascular: regular rhythm Respiratory/Chest: lungs clear, normal breath sounds Abdomen: normal bowel sounds, non tender, soft, no organomegaly Edema: no edema noted Arm (L), no edema noted Arm (R), no edema noted Leg (L), no edema noted Leg (R), no edema noted Pedal (L), no edema noted Pedal (R), no edema noted Generalized Neurologic: no motor/sensory deficits - left sided weakness and left sided neglect PARISH SEBASTIAN Feb 02, 2017 12:59
--- NOTE | 2017-02-02 12:59 | Neurology Progress Note ---
Interim History Interim History Interim History Mr. Alejandre feels better. He is a little more aware of his left sided deficits. He continues to have a right gaze preference. He denies any new neurologic symptoms. As per his nurse he has not been eating well. He says he does not like the food. Review of Systems Neuro Review of Systems Benign. Objective Physical Exam Last Vital Signs Date Time Temp Pulse Resp B/P Pulse Ox O2 Delivery O2 Flow Rate FiO2 02/02/17 11:29 21 02/02/17 11:29 55 16 97 Room Air 02/02/17 11:25 97.2 133/59 Laboratory Tests Test 02/01/17 18:00 02/02/17 04:10 Urine Color Pale yellow Urine Appearance Slightly cloudy Urine pH 5 (4.5-8.0) Urine Specific [place] 1.015 (1.005-1.035) Urine Protein 3+ (NEGATIVE) H Urine Glucose (UA) Negative (NEGATIVE) Urine Ketones Negative (NEGATIVE) Urine Occult Blood 5+ (NEGATIVE) H Urine Nitrite Negative (NEGATIVE) Urine Bilirubin Negative (NEGATIVE) Urine Urobilinogen Normal MG/DL (0.0-1.0) Urine Leukocyte Esterase 2+ (NEGATIVE) H Urine RBC 10-15 /HPF (0 - 0) H Urine WBC 5-10 /HPF (0 - 0) H Urine Squamous Epithelial Cells None /LPF (NONE/OCC) Urine Bacteria Moderate /HPF (NONE) H White Blood Count 7.6 K/UL (4.8-10.8) Red Blood Count 5.60 M/UL (4.70-6.10) Hemoglobin 16.2 G/DL (14.2-18.0) Hematocrit 47.9 % (42.0-52.0) Mean Corpuscular Volume 86 FL (80-99) Mean Corpuscular Hemoglobin 28.9 PG (27.0-31.0) Mean Corpuscular Hemoglobin Concent 33.8 G/DL (32.0-36.0) Red Cell Distribution Width 13.4 % (11.6-14.8) Platelet Count 126 K/UL (150-450) L Mean Platelet Volume 8.1 FL (6.5-10.1) Neutrophils (%) (Auto) 61.8 % (45.0-75.0) Lymphocytes (%) (Auto) 26.3 % (20.0-45.0) Monocytes (%) (Auto) 9.0 % (1.0-10.0) Eosinophils (%) (Auto) 1.9 % (0.0-3.0) Basophils (%) (Auto) 0.9 % (0.0-2.0) Sodium Level 139 mEQ/L (135-145) Potassium Level 3.6 mEQ/L (3.4-4.9) Chloride Level 101 mEQ/L (98-107) Carbon Dioxide Level 22 mEQ/L (20-30) Anion Gap 16 (5-15) H Blood Urea Nitrogen 9 mg/dL (7-23) Creatinine 1.0 mg/dL (0.7-1.2) Estimat Glomerular Filtration Rate > 60 mL/min (>60) Glucose Level 84 mg/dL (74-106) Calcium Level 8.4 mg/dL (8.6-10.2) L Total Bilirubin 0.6 mg/dL (0.0-1.2) Aspartate Amino Transf (AST/SGOT) 14 U/L (5-40) Alanine Aminotransferase (ALT/SGPT) 11 U/L (3-41) Alkaline Phosphatase 66 U/L (40-129) Total Protein 6.1 g/dL (6.6-8.7) L Albumin 3.5 g/dL (3.5-5.2) Globulin 2.6 g/dL Albumin/Globulin Ratio 1.3 (1.0-2.7) Neurologic Exam Objective PHYSICAL EXAMINATION: GENERAL: He is a well-developed, well-nourished, pleasant black gentleman, lying in bed, in no acute distress, neglecting his left side with right gaze preference. HEAD: Normocephalic and atraumatic. EENT: Examination benign. NECK: No neck rigidity was observed. NEUROLOGICAL EXAMINATION: MENTAL STATUS EXAMINATION: He was awake and alert. He was oriented to self, hospital, and January 2017. He did not know the name of the hospital or the exact date. He was able to recall 3/3 words immediately and in 1 minute, but could only remember 2/3 words in 3 minutes. He was able to remember president Trump through Paul Kannan, but had problems remembering presidents prior to that. His mathematical skills were minimally impaired. His visuospatial function was relatively good. SPEECH: He had a mild dysarthria. LANGUAGE: He had a mild anomia for low-frequency words. CRANIAL NERVE EXAMINATION: II: He had a left visual field cut and a right gaze preference. III, IV & : The external ocular movements were restricted due to the significant right gaze preference. The pupils were 3 mm in diameter, equal, round, regular, and reactive sluggishly to light. V: He had normal facial sensations, and the temporales, masseters, and pterygoids functioned normally. VII: He had a left VII central facial paresis. VIII: He was able to hear well bilaterally and had no nystagmus. IX: The palate moved symmetrically on phonation. X: He had no hoarseness of voice. XI: The sternocleidomastoids and trapezii functioned normally. XII: The tongue was in the midline without any fasciculations or atrophy. MOTOR SYSTEM: The tone was spastic on the left side and normal on the right side. Examination of muscle mass revealed wasting of the left upper extremity. Examination of power revealed G 0/5 in the left upper extremity, G 4/5 in the left lower extremity except for G 3/5 in the left iliopsoas, G 5/5 on the right side except for G 4+/5 in the right iliopsoas. SENSORY EXAMINATION: He had intact sensations to pinprick and light touch on the right side. On the left side, he neglected stimulation. REFLEXES: 2++ on the left and 2+ on the right at the biceps, triceps, brachioradialis, and knees. 0 at both ankles. The plantar response was flexor on the right and extensor on the left. COORDINATION: He performed well on [id number]-[id number] and pmni-dt-wswp testing on the right side, but could not perform on the left side. STANCE & GAIT: Could not be tested. Impression/Recommendations Diagnostic Impression 1. Mr. Barrett Alejandre is a 62-year-old, right-handed, black gentleman, who does have a past history of hypertension, cerebrovascular disease with stroke approximately 3 years ago associated with left-sided weakness, who on 2016 was noted to have an alteration in his mental state and in addition left visual problems and neglect of his left side. 2. He feels better today. He however has significant weakness and neglect of his left side. 3. On neurological examination, at this time, he is disoriented to the exact date and place, and has problems with recent and remote memory. Has a mild dysarthria, mild anomia, left visual field cut with right gaze preference, left VII central facial paresis, left upper extremity plegia, left lower extremity paresis, mild proximal right lower extremity paresis, brisker reflexes on the left side compared to the right side, an extensor plantar response on the left side with an inability to stand and walk. 4. The CT scan of the brain without contrast reveals an acute right middle cerebral artery territory infarct and in addition, old pontine and basal ganglion infarcts. 5. Laboratory data obtained thus far revealed that his hemoglobin is elevated to 17.3. His chemistry panel is relatively benign, and his lipid panel reveals a total cholesterol of 167 with an LDL of 101 and HDL of 44. His vitamin B12 level is normal at 481 and his TSH is normal at 2.3. His urinalysis was also benign. 6. The patient's history and neurological examination are most compatible with an acute right middle cerebral artery territory infarct and in addition old infarcts in the yamile and basal ganglia. Recommendations 1. Continue present management. 2. The patient's blood pressure should be kept in the equal to or less than 120/ 80 range. 3. The patient's LDL goal should be less than 70. 4. A cerebrovascular noninvasive profile should be performed to evaluate the patient for hemodynamically significant carotid disease. 5. A transthoracic echocardiogram with a bubble study should be performed in light of the multiple infarcts that the patient has had. 6. Physical occupational and speech and language therapy should be started to rehabilitate the patient. Christel Hutton M.D., M.S.P.CHRISTEL GUTIERREZ Feb 02, 2017 12:59
--- NOTE | 2017-02-02 14:30 | Diagnostic Imaging Report ---
APPROVED REPORT CPT Code: 43057 Vascular Symptoms Dizziness and Vertigo Doppler Spectral Velocity Analysis RightLeft BILATERAL: CCA/BULB - Imaging reveals irregular, minimal plaque in both carotid bulbs. arteries. The Doppler spectral flow analysis is within normal limits throughout the internal and external carotid arteries. VERTEBRALS - Imaging reveals both vertebral arteries to be patent, without evidence of stenosis or steal.
[2017-02-02 15:15] VITALS: BP 136/73
[2017-02-02 20:14] VITALS: BP 110/67
[2017-02-03] VITALS (7 sets, daily range): BP systolic 112–151; BP diastolic 72–92
[2017-02-03] MEDS: cefTRIAXone 1 GM in D5W 55 ML IVPB SCH (00:37)
[2017-02-03] MEDS: DuoNeb 0.5-3(2.5)mg/3ml neb HHN SCH ×5 (03:19→19:03)
[2017-02-03] MEDS: Lisinopril 20mg tab ORAL SCH ×2 (08:31→17:13)
--- NOTE | 2017-02-03 08:51 | General Progress Note ---
Assessment/Plan Problem List: (1) CVA (cerebral vascular accident) ICD Codes: I63.9 - Cerebral infarction, unspecified SNOMED: 475369634 (2) Altered level of consciousness ICD Codes: R40.4 - Transient alteration of awareness SNOMED: [id number] Assessment/Plan carotids ok bubble study antiplt rx pt/ot/st bp rx per cards dc planning if bubble study negative Subjective ROS Limited/Unobtainable: No Constitutional: Reports: malaise, weakness HEENT: Reports: no symptoms Cardiovascular: Reports: no symptoms Respiratory: Reports: no symptoms Gastrointestinal/Abdominal: Reports: no symptoms Genitourinary: Reports: no symptoms Neurologic/Psychiatric: Reports: pre-existing deficit Endocrine: Reports: no symptoms Hematologic/Lymphatic: Reports: no symptoms Allergies: Coded Allergies: No Known Allergies (Unverified , 01/30/17) All Systems: reviewed and negative except above Subjective still with left sided neglect. neuro noted. passed video swallow. bubble study ordered per neuro recs Objective Last 24 Hour Vital Signs Date Time Temp Pulse Resp B/P Pulse Ox O2 Delivery O2 Flow Rate FiO2 02/03/17 08:31 125/80 02/03/17 08:30 97.7 92 18 125/80 95 Room Air 02/03/17 06:59 53 16 99 21 02/03/17 06:49 21 02/03/17 06:49 51 16 96 Room Air 02/03/17 04:01 86 02/03/17 03:42 97.6 74 19 138/72 96 Room Air 02/03/17 03:16 95 16 100 21 02/03/17 03:15 21 02/03/17 03:15 85 16 99 Room Air 02/03/17 03:14 Room Air 02/03/17 03:14 21 02/03/17 00:51 87 02/03/17 00:07 97.5 56 20 145/88 93 Room Air 02/02/17 23:15 87 16 100 21 02/02/17 23:00 21 02/02/17 23:00 90 16 99 Room Air 02/02/17 20:14 98.8 55 22 110/67 94 Room Air 02/02/17 20:00 55 02/02/17 19:10 97 16 98 Room Air 02/02/17 19:10 61 16 100 21 02/02/17 19:10 21 02/02/17 17:28 136/73 02/02/17 16:00 56 02/02/17 15:40 56 16 97 Room Air 21 02/02/17 15:40 55 16 98 21 02/02/17 15:40 21 02/02/17 15:15 97.2 55 20 136/73 100 Room Air 02/02/17 12:00 54 02/02/17 11:29 21 02/02/17 11:29 55 16 97 Room Air 21 02/02/17 11:29 56 16 98 21 02/02/17 11:25 97.2 53 20 133/59 100 Room Air Intake and Output 02/02/17 02/03/17 19:00 07:00 Intake Total 1870 ml 310 ml Output Total 1700 ml 1350 ml Balance 170 ml -1040 ml Intake Oral 570 ml IV Total 1300 ml Other 310 ml Output Urine Total 1700 ml 1350 ml # Voids 2 # Bowel Movements 1 Height (Feet): 5 Height (Inches): 9.00 Weight (Pounds): 190 Objective General Appearance: WD/WN, alert Neck: supple Cardiovascular: regular rhythm Respiratory/Chest: lungs clear, normal breath sounds Abdomen: normal bowel sounds, non tender, soft, no organomegaly Edema: no edema noted Arm (L), no edema noted Arm (R), no edema noted Leg (L), no edema noted Leg (R), no edema noted Pedal (L), no edema noted Pedal (R), no edema noted Generalized Neurologic: no motor/sensory deficits - left sided weakness and left sided neglect PAR[facility] SEBASTIAN Feb 03, 2017 08:51
--- NOTE | 2017-02-03 17:59 | Neurology Progress Note ---
Interim History Interim History Interim History Mr. Alejandre feels better. He is a little more aware of his left sided deficits. He continues to have a right gaze preference. He denies any new neurologic symptoms. He is able to move his left leg but not his left upper extremity. Review of Systems Neuro Review of Systems Benign. Objective Physical Exam Last Vital Signs Date Time Temp Pulse Resp B/P Pulse Ox O2 Delivery O2 Flow Rate FiO2 02/03/17 17:13 123/75 02/03/17 16:02 97.7 70 18 99 Room Air 02/03/17 15:12 21 02/03/17 12:33 2.0 Neurologic Exam Objective PHYSICAL EXAMINATION: GENERAL: He is a well-developed, well-nourished, pleasant black gentleman, lying in bed, in no acute distress, neglecting his left side with right gaze preference. HEAD: Normocephalic and atraumatic. EENT: Examination benign. NECK: No neck rigidity was observed. NEUROLOGICAL EXAMINATION: MENTAL STATUS EXAMINATION: He was awake and alert. He was oriented to self, hospital, and January 2017. He did not know the name of the hospital or the exact date. He was able to recall 3/3 words immediately and in 1 minute, but could only remember 2/3 words in 3 minutes. He was able to remember president Trump through Paul Kannan, but had problems remembering presidents prior to that. His mathematical skills were minimally impaired. His visuospatial function was relatively good. SPEECH: He had a mild dysarthria. LANGUAGE: He had a mild anomia for low-frequency words. CRANIAL NERVE EXAMINATION: II: He had a left visual field cut and a right gaze preference. III, IV & : The external ocular movements were restricted due to the significant right gaze preference. The pupils were 3 mm in diameter, equal, round, regular, and reactive sluggishly to light. V: He had normal facial sensations, and the temporales, masseters, and pterygoids functioned normally. VII: He had a left VII central facial paresis. VIII: He was able to hear well bilaterally and had no nystagmus. IX: The palate moved symmetrically on phonation. X: He had no hoarseness of voice. XI: The sternocleidomastoids and trapezii functioned normally. XII: The tongue was in the midline without any fasciculations or atrophy. MOTOR SYSTEM: The tone was spastic on the left side and normal on the right side. Examination of muscle mass revealed wasting of the left upper extremity. Examination of power revealed G 0/5 in the left upper extremity, G 4/5 in the left lower extremity except for G 3/5 in the left iliopsoas, G 5/5 on the right side except for G 4+/5 in the right iliopsoas. SENSORY EXAMINATION: He had intact sensations to pinprick and light touch on the right side. On the left side, he neglected stimulation. REFLEXES: 2++ on the left and 2+ on the right at the biceps, triceps, brachioradialis, and knees. 0 at both ankles. The plantar response was flexor on the right and extensor on the left. COORDINATION: He performed well on [id number] and bjzl-ae-luvt testing on the right side, but could not perform on the left side. STANCE & GAIT: Could not be tested. Impression/Recommendations Diagnostic Impression 1. Mr. Barrett Alejandre is a 62-year-old, right-handed, black gentleman, who does have a past history of hypertension, cerebrovascular disease with stroke approximately 3 years ago associated with left-sided weakness, who on 2016 was noted to have an alteration in his mental state and in addition left visual problems and neglect of his left side. 2. He feels better today. He however has significant weakness and neglect of his left side. 3. On neurological examination, at this time, he is disoriented to the exact date and place, and has problems with recent and remote memory. Has a mild dysarthria, mild anomia, left visual field cut with right gaze preference, left VII central facial paresis, left upper extremity plegia, left lower extremity paresis, mild proximal right lower extremity paresis, brisker reflexes on the left side compared to the right side, an extensor plantar response on the left side with an inability to stand and walk. 4. The CT scan of the brain without contrast reveals an acute right middle cerebral artery territory infarct and in addition, old pontine and basal ganglion infarcts. 5. Laboratory data obtained thus far revealed that his hemoglobin is elevated to 17.3. His chemistry panel is relatively benign, and his lipid panel reveals a total cholesterol of 167 with an LDL of 101 and HDL of 44. His vitamin B12 level is normal at 481 and his TSH is normal at 2.3. His urinalysis was also benign. 6. His echocardiogram with bubble study was negative. 7. His carotid duplex scan revealed no significant ICA disease. 8. The patient's history and neurological examination are most compatible with an acute right middle cerebral artery territory infarct and in addition old infarcts in the yamile and basal ganglia. Recommendations 1. Continue present management. 2. The patient's blood pressure should be kept in the equal to or less than 120/ 80 range. 3. The patient's LDL goal should be less than 70. 4. Physical, occupational, and speech and language therapy. Christel Hutton M.D., M.S.P.Lina. CHRISTEL HUTTON Feb 03, 2017 17:59
--- NOTE | 2017-02-03 23:38 | Progress Note ---
DATE: 02/03/2017 CARDIOLOGY PROGRESS NOTE SUBJECTIVE: Pelvic study was completed and negative for shunt. Carotid duplex with no flow-limiting disease. Swallow evaluation reviewed and the patient is stable for diet. On exam, the patient had left-sided neglect, left upper extremity paresis and left lower extremity weakness. OBJECTIVE: VITAL SIGNS: Blood pressure 125/80, heart rate 53, and respiratory rate 18. NECK: Supple. LUNGS: Clear. CARDIAC: Regular. Normal S1 and S2. ABDOMEN: Soft. EXTREMITIES: No edema. IMPRESSION: 1. Acute cerebrovascular accident. 2. Sinus bradycardia asymptomatic. 3. Hypertensive heart disease with controlled blood pressure. 4. Encephalopathy, improving. PLAN: 1. No role for pacemaker. 2. Continue anti-platelet and anti-lipid drugs. 3. Maintain current antihypertensive regimen for optimal blood pressure control. 4. Discharge planning with ongoing physical and occupational therapy. Rodolfo Box M.D. DR: BALAJI JOB#: [id number] CC:
--- NOTE | 2017-02-03 23:38 | Progress Note ---
DATE: 02/02/2017 CARDIOLOGY PROGRESS NOTE Late entry for 02/02/2017. SUBJECTIVE: The patient is awaiting video swallow study as well as a bubble study to assess for shunt. Carotid duplex revealed mild plaquing. OBJECTIVE: VITAL SIGNS: Blood pressure 133/59, heart rate 48 to 56, and respiratory rate 16 to 20. The patient is afebrile. NECK: Supple. LUNGS: Clear. CARDIAC: Regular. Normal S1 and S2 with a slow rate. ABDOMEN: Soft. EXTREMITIES: No edema. Left-sided neglect. Left upper extremity paresis. Left lower extremity weakness. IMPRESSION: 1. Acute cerebrovascular accident. 2. Sinus bradycardia. 3. Hypertensive heart disease. 4. Possible dysphagia. PLAN: 1. Anti-platelet therapy. 2. Follow up results of bubble study. 3. Continue current cardiovascular regimen with antihypertensives to maintain blood pressure control in the range of 120 to 130 systolic over 60 to 70 diastolic. 4. Physical and occupational therapy. 5. Speech evaluation. 6. Continue telemetry. 7. Presently no indications for permanent pacing. Rodolfo Box M.D. DR: ARI JOB#: [id number] CC:
[2017-02-04] MEDS: cefTRIAXone 1 GM in D5W 55 ML IVPB SCH (00:55)
[2017-02-04] MEDS: DuoNeb 0.5-3(2.5)mg/3ml neb HHN SCH ×5 (01:24→15:19)
[2017-02-04 03:47] VITALS: BP 131/97
[2017-02-04 07:38] VITALS: BP 140/90
--- NOTE | 2017-02-04 07:55 | Cardiology Report ---
APPROVED REPORT EXAM: Two-dimensional and M-mode echocardiogram with Doppler and color Doppler. INDICATION BUBBLE STUDY THIS IS A LIMITED ECHO WITH BUBBLE STUDY ONLY. We used 2X 10cc of agitated saline with venous injection: NO communication between right ventricle and left ventricle as well as right atrium and left atrium. Negative Echo bubble study.
[2017-02-04] MEDS: Lisinopril 20mg tab ORAL SCH (08:46)
[2017-02-04 11:11] VITALS: BP 141/90
[2017-02-04] MEDS ORDERED: PLAVIX75 MG ORAL (13:06)
--- NOTE | 2017-02-04 14:36 | Neurology Progress Note ---
Interim History Interim History Interim History Mr. Alejandre feels better. He is a little more aware of his left sided deficits. He continues to have a right gaze preference. He denies any new neurologic symptoms. He is able to move his left leg but not his left upper extremity. There has been no significant change in his condition. Review of Systems Neuro Review of Systems Benign. Objective Physical Exam Last Vital Signs Date Time Temp Pulse Resp B/P Pulse Ox O2 Delivery O2 Flow Rate FiO2 02/04/17 12:00 56 02/04/17 11:36 Room Air 02/04/17 11:11 96.6 20 141/90 100 02/04/17 07:28 21 02/03/17 12:33 2.0 Neurologic Exam Objective PHYSICAL EXAMINATION: GENERAL: He is a well-developed, well-nourished, pleasant black gentleman, lying in bed, in no acute distress, neglecting his left side with right gaze preference. HEAD: Normocephalic and atraumatic. EENT: Examination benign. NECK: No neck rigidity was observed. NEUROLOGICAL EXAMINATION: MENTAL STATUS EXAMINATION: He was awake and alert. He was oriented to self, hospital, and January 2017. He did not know the name of the hospital or the exact date. He was able to recall 3/3 words immediately and in 1 minute, but could only remember 2/3 words in 3 minutes. He was able to remember president Trump through Paul Kann[facility], but had problems remembering presidents prior to that. His mathematical skills were minimally impaired. His visuospatial function was relatively good. SPEECH: He had a mild dysarthria. LANGUAGE: He had a mild anomia for low-frequency words. CRANIAL NERVE EXAMINATION: II: He had a left visual field cut and a right gaze preference. III, IV & : The external ocular movements were restricted due to the significant right gaze preference. The pupils were 3 mm in diameter, equal, round, regular, and reactive sluggishly to light. V: He had normal facial sensations, and the temporales, masseters, and pterygoids functioned normally. VII: He had a left VII central facial paresis. VIII: He was able to hear well bilaterally and had no nystagmus. IX: The palate moved symmetrically on phonation. X: He had no hoarseness of voice. XI: The sternocleidomastoids and trapezii functioned normally. XII: The tongue was in the midline without any fasciculations or atrophy. MOTOR SYSTEM: The tone was spastic on the left side and normal on the right side. Examination of muscle mass revealed wasting of the left upper extremity. Examination of power revealed G 0/5 in the left upper extremity, G 4/5 in the left lower extremity except for G 3/5 in the left iliopsoas, G 5/5 on the right side except for G 4+/5 in the right iliopsoas. SENSORY EXAMINATION: He had intact sensations to pinprick and light touch on the right side. On the left side, he neglected stimulation. REFLEXES: 2++ on the left and 2+ on the right at the biceps, triceps, brachioradialis, and knees. 0 at both ankles. The plantar response was flexor on the right and extensor on the left. COORDINATION: He performed well on rhfjbi-ug-txeg and grhe-ea-dpmw testing on the right side, but could not perform on the left side. STANCE & GAIT: Could not be tested. Impression/Recommendations Diagnostic Impression 1. Mr. Barrett Alejandre is a 62-year-old, right-handed, black gentleman, who does have a past history of hypertension, cerebrovascular disease with stroke approximately 3 years ago associated with left-sided weakness, who on 2016 was noted to have an alteration in his mental state and in addition left visual problems and neglect of his left side. 2. He feels better today. He however has significant weakness and neglect of his left side. 3. On neurological examination, at this time, he is disoriented to the exact date and place, and has problems with recent and remote memory. Has a mild dysarthria, mild anomia, left visual field cut with right gaze preference, left VII central facial paresis, left upper extremity plegia, left lower extremity paresis, mild proximal right lower extremity paresis, brisker reflexes on the left side compared to the right side, an extensor plantar response on the left side with an inability to stand and walk. 4. The CT scan of the brain without contrast reveals an acute right middle cerebral artery territory infarct and in addition, old pontine and basal ganglion infarcts. 5. Laboratory data obtained thus far revealed that his hemoglobin is elevated to 17.3. His chemistry panel is relatively benign, and his lipid panel reveals a total cholesterol of 167 with an LDL of 101 and HDL of 44. His vitamin B12 level is normal at 481 and his TSH is normal at 2.3. His urinalysis was also benign. 6. His echocardiogram with bubble study was negative. 7. His carotid duplex scan revealed no significant ICA disease. 8. The patient's history and neurological examination are most compatible with an acute right middle cerebral artery territory infarct and in addition old infarcts in the yamile and basal ganglia. Recommendations 1. Continue present management. 2. The patient's blood pressure should be kept in the equal to or less than 120/ 80 range. 3. The patient's LDL goal should be less than 70. 4. Physical, occupational, and speech and language therapy. Christel Hutton M.D., M.S.P.CHRISTEL GUTIERREZ Feb 04, 2017 14:36
[2017-02-04 15:15] VITALS: BP 144/90
[2017-02-04] MEDS ORDERED: 1/2 NS 1000ml IV ONE (16:54)
--- NOTE | 2017-02-05 02:58 | Progress Note ---
DATE: 02/04/2017 CARDIOLOGY PROGRESS NOTE SUBJECTIVE: The patient's condition is stabilized. No distress. OBJECTIVE: VITAL SIGNS: Blood pressure 144/90, pulse 57, and respiratory rate 21. LUNGS: Clear. CARDIAC: Regular. ABDOMEN: Soft. EXTREMITIES: No edema. NEUROLOGIC: Left hemiparesis, left side neglect. IMPRESSION: 1. Acute cerebrovascular accident. 2. Asymptomatic sinus bradycardia. 3. Hypertensive heart disease. PLAN: 1. Stable for retirement facility. 2. No indication for permanent pacemaker. 3. Continue anti-lipid and anti-platelet therapy. 4. Ongoing rehabilitation. Rodolfo Box M.D. DR: JANEL JOB#: [id number] CC:
--- NOTE | 2017-02-05 04:38 | Discharge Summary ---
DATE OF ADMISSION: 01/29/2017 DATE OF DISCHARGE: 02/04/2017 ADMISSION DIAGNOSES: 1. Altered mental status. 2. Acute cerebrovascular accident. 3. Hypertension. DISCHARGE DIAGNOSES: 1. Altered mental status. 2. Acute cerebrovascular accident. 3. Hypertension. 4. Urinary tract infection. HOSPITAL COURSE: The patient is a pleasant male with a prior history of stroke and left-sided weakness. He was admitted because of altered mental status. A repeat CAT scan showed an acute stroke in the same region as his prior stroke. The patient passed a swallow evaluation. Neurologic consultation was obtained. The patient was placed on Plavix. He was diagnosed with urinary tract infection, which was treated with IV antibiotics. Cardiology consultation was also obtained. The patient had a bulbar study that was negative. Echo showed no evidence of any thrombus and a carotid duplex showed only minimal plaquing. Discharge of the the patient was stable. Family elected for the patient go to [facility]. He will be continued on rehabilitation therapy. DISCHARGE MEDICATIONS: Please see discharge medication list for discharge medications. DIET: Cardiac diet. ACTIVITIES: Ad-lalita. Kulwinder House M.D. DR: JIM JOB#: [id number] CC:
--- NOTE | 2017-02-09 16:35 | Diagnostic Imaging Report ---
Indications: DYSPHAGIA Technique: Patient ingested multiple substances under the supervision of speech pathology. Video fluoroscopic recording performed. Total fluoroscopy time 229 seconds. Total dose area product [id number] mGycm2 Comparison: none Findings: Some early pooling of material is seen in the vallecula and puriform sinuses prior to swallowing. Occasional deep penetration with thin liquid barium is noted and trace penetration of nectar thick liquid barium. No gold aspiration no aspiration or penetration of honey thick liquid barium or barium pur?e or barium-soaked solid.. Stripping of the contrast bolus is noted. Impression: Positive for penetration of thin and nectar thick liquid barium. Negative for aspiration Please refer to speech pathology report or more detailed analysis
== END 2017-02-04 16:55 | DRG 65 ==
LOC: EDBD 23:30 → EMR 23:43 → 2W 01-31 02:08 → EDBEDREQ 01-31 06:02 → 2E 01-31 20:41
DX: I63.8 Other cerebral infarction (principal); G81.94 Hemiplegia, unspecified affecting left nondominant side; I11.9 Hypertensive heart disease without heart failure; N39.0 Urinary tract infection, site not specified; I69.354 Hemiplegia and hemiparesis following cerebral infarction affecting left non-dominant side; R47.1 Dysarthria and anarthria; E78.5 Hyperlipidemia, unspecified; Z87.891 Personal history of nicotine dependence; R00.1 Bradycardia, unspecified
CPT/HCPCS: 36415; 70450; 71010; 74230; 80053; 80061; 81001; 81003; 82140; 82550; 82553; 82607; 82746; 83605; 84443; 84484; 85025; 85610; 85730; 86592; 87040; 87081; 87086; 87181; 93005; 93306; 93880; 94640; 94664; J7620

== ENCOUNTER 2017-08-19 18:05 | Emergency (ER) | payer MEDICARE, MEDICAID ==
[~2017-08-19] VITALS: Ht 165.1 cm; Wt 81.6 kg
[~2017-08-19 18:05] MED LIST: AMLODIPINE BESY10 MG ORAL; ANTI-DIARRHEA2 MG PO; COLACE100 MG ORAL; DETROL LA2 MG ORAL; HYDRALAZINE HCL50 MG ORAL; IBUPROFEN600 MG ORAL; LIPITOR20 MG ORAL; LISINOPRIL20 MG ORAL; MILK OF MA400 MG/51 ORAL; PLAVIX75 MG ORAL; TYLENOL EXTRA500 MG ORAL; ZANTAC150 MG ORAL
[2017-08-19 18:22] VITALS: BP 156/91
[2017-08-19 19:45] VITALS: BP 161/90
[2017-08-19] MEDS ORDERED: CLONIDINE0.1 MG PO (20:08)
[2017-08-19] MEDS ORDERED: MILK OF MA400 MG/51 ORAL (20:50)
[2017-08-19 21:09] VITALS: BP 145/84
[2017-08-19 21:10] VITALS: BP 177/96
--- NOTE | 2017-08-21 23:17 | Emergency Room Report ---
History of Present Illness General Chief Complaint: Medication Refill Present Illness HPI Patient is a 62-year-old male sent in by care home for medication refill. Patient had prior history of hypertension. He was sent in for refill of clonidine. Patient had prior history of CVA. Patient also had hypertension. Allergies: Coded Allergies: No Known Allergies (Unverified , 01/30/17) Patient History Past Medical History: see triage record Reviewed Nursing Documentation: PMH: Agreed, PSxH: Agreed Nursing Documentation-PMH Past Medical History: No History, Except For Hx Cardiac Problems: Yes Hx Hypertension: Yes Hx Cancer: No Hx Gastrointestinal Problems: Yes Hx Neurological Problems: Yes Hx Cerebrovascular Accident: Yes Review of Systems All Other Systems: negative except mentioned in HPI Physical Exam Vital Signs Date Time Temp Pulse Resp B/P (MAP) Pulse Ox O2 Delivery O2 Flow Rate FiO2 08/19/17 18:12 99.0 67 12 154/84 98 Room Air Sp02 EP Interpretation: reviewed, normal General Appearance: normal inspection, well appearing, no apparent distress, alert, GCS 15 Head: atraumatic ENT: normal ENT inspection, hearing grossly normal, normal voice Neck: normal inspection, full range of motion, supple, no bony tend Respiratory: normal inspection, lungs clear, normal breath sounds, no respiratory distress, no retraction, no wheezing Cardiovascular #1: regular rate, rhythm, no edema Gastrointestinal: normal inspection, normal bowel sounds, non tender, soft, no guarding, no hernia Genitourinary: no CVA tenderness Musculoskeletal: normal inspection, back normal, normal range of motion Neurologic: normal inspection, alert, responsive, motor weakness - right upper extremity, other - slow speech Psychiatric: normal inspection, judgement/insight normal, mood/affect normal Skin: normal inspection, normal color, no rash Medical Decision Making Diagnostic Impression: Primary Impression: Encounter for medication refill ER Course Patient presented for medication refill. The patient was given prescription for clonidine. He was sent back to his care home via [facility] due to a baseline cognitive impairments. Patient was discharged back to care home. Nursing staff were advised return precautions. The patient was transferred home by ambulance. Last Vital Signs Date Time Temp Pulse Resp B/P (MAP) Pulse Ox O2 Delivery O2 Flow Rate FiO2 08/19/17 21:10 98.4 53 18 177/96 98 Room Air Status: improved Disposition: HOME, SELF-CARE Condition: Stable Scripts Clonidine HCl (Clonidine HCl) 0.1 Mg Tablet 0.1 MG PO TWICE A DAY, #30 TAB Prov: Stoney Jones 08/19/17 Referrals: [facility] SEBASTIAN (PCP) Patient Instructions: Medicine Refill at the Emergency Department Stoney Jones Aug 21, 2017 23:17
--- NOTE | 2017-08-21 23:17 | Emergency Room Report ---
History of Present Illness General Chief Complaint: Medication Refill Present Illness HPI Patient is a 62-year-old male sent in by snf for medication refill. Patient had prior history of hypertension. He was sent in for refill of clonidine. Patient had prior history of CVA. Patient also had hypertension. Allergies: Coded Allergies: No Known Allergies (Unverified , 01/30/17) Patient History Past Medical History: see triage record Reviewed Nursing Documentation: PMH: Agreed, PSxH: Agreed Nursing Documentation-PMH Past Medical History: No History, Except For Hx Cardiac Problems: Yes Hx Hypertension: Yes Hx Cancer: No Hx Gastrointestinal Problems: Yes Hx Neurological Problems: Yes Hx Cerebrovascular Accident: Yes Review of Systems All Other Systems: negative except mentioned in HPI Physical Exam Vital Signs Date Time Temp Pulse Resp B/P (MAP) Pulse Ox O2 Delivery O2 Flow Rate FiO2 08/19/17 18:12 99.0 67 12 154/84 98 Room Air Sp02 EP Interpretation: reviewed, normal General Appearance: normal inspection, well appearing, no apparent distress, alert, GCS 15 Head: atraumatic ENT: normal ENT inspection, hearing grossly normal, normal voice Neck: normal inspection, full range of motion, supple, no bony tend Respiratory: normal inspection, lungs clear, normal breath sounds, no respiratory distress, no retraction, no wheezing Cardiovascular #1: regular rate, rhythm, no edema Gastrointestinal: normal inspection, normal bowel sounds, non tender, soft, no guarding, no hernia Genitourinary: no CVA tenderness Musculoskeletal: normal inspection, back normal, normal range of motion Neurologic: normal inspection, alert, responsive, motor weakness - right upper extremity, other - slow speech Psychiatric: normal inspection, judgement/insight normal, mood/affect normal Skin: normal inspection, normal color, no rash Medical Decision Making Diagnostic Impression: Primary Impression: Encounter for medication refill ER Course Patient presented for medication refill. The patient was given prescription for clonidine. He was sent back to his [facility] via [facility] due to a baseline cognitive impairments. Patient was discharged back to snf. Nursing staff were advised return precautions. The patient was transferred home by ambulance. Last Vital Signs Date Time Temp Pulse Resp B/P (MAP) Pulse Ox O2 Delivery O2 Flow Rate FiO2 08/19/17 21:10 98.4 53 18 177/96 98 Room Air Status: improved Disposition: HOME, SELF-CARE Condition: Stable Scripts Clonidine HCl (Clonidine HCl) 0.1 Mg Tablet 0.1 MG PO TWICE A DAY, #30 TAB Prov: Stoney Jones 08/19/17 Referrals: [facility] (PCP) Patient Instructions: Medicine Refill at the Emergency Department Stoney Jones Aug 21, 2017 23:17
== END 2017-08-19 21:10 | disposition home or self-care (01) ==
LOC: EDUNIT# 18:05 → EDBD 18:05 → EMR 20:28
DX: Z76.0 Encounter for issue of repeat prescription (principal); I10 Essential (primary) hypertension; Z86.73 Personal history of transient ischemic attack (TIA), and cerebral infarction without residual deficits
CPT/HCPCS: 99283